=== PATIENT | male | born 1975 | race Two or more races ===

== ENCOUNTER 2016-08-06 05:02 | Inpatient (IN) | payer OTHER ==
--- NOTE | 2016-07-26 12:20 | GHP ---
[f rep st] PREOP HISTORY AND PHYSICAL DATE OF ADMISSION: 08/06/2016 PROBLEM: Bilateral hip arthritis. HISTORY OF PRESENT ILLNESS: The patient is a 41-year-old man admitted for a left hip [place] Hip Resurfacing Arthroplasty. I have followed him for the past 5 years. He has had progressive pain and stiffness. His activities are now very limited. He is admitted for a left hip BHR. PAST MEDICAL HISTORY: Overall, he is in excellent general health. No history of previous serious MR SA hicks infections. He was hospitalized on July 14 for a bowel obstruction. This was treated no noperatively and resolved. He had some type of intestinal deformity at which required surgery. No history of heart disease, DVT, hepatitis, or sleep apnea. CURRENT MEDICATIONS: None. ALLERGIES: Drug allergies: None. Metal allergy: None. Latex allergy: None. SOCIAL HISTORY: The patient is . He works in heating and air conditioning. He does not smok e cigarettes and occasionally drinks alcohol. FAMILY HISTORY: Heart disease. PHYSICAL EXAMINATION: GENERAL: He is a healthy-appearing man. VITAL SIGNS: Height 5 feet 7 inches . Weight 160 pounds. BMI 25.1. HEENT: Eyes: Conjunctivae and sclerae are clear. Pupils are roun d and reactive. Mouth: Good oral hygiene. No loose teeth. CHEST: Clear. HEART: Regular rhythm. No murmurs. EXTREMITIES: Pertinent findings are limited to his hips. He has full hip extension a nd 90 degrees of flexion. As he flexes the left hip, he develops a 10-degree external rotation contr acture and has no further internal or external rotation. Abduction 10 degrees. IMAGING: Films show very severe degenerative arthritis of both hips. The left hip is worse than the right. He has extensive osteophyte formation. He has a deep, medial wall acetabular osteophyte. G ood quality bone. IMPRESSION ON ADMISSION: 1. Bilateral hip severe degenerative arthritis. The left hip is worse than the right. 2. History of intestinal problems. He has had 2 episodes of bowel obstruction. PLAN: He will undergo a left hip [place] Hip Resurfacing Arthroplasty. The surgery has been desc ribed to him including the risks, complications, expectations, and recovery time. I have discussed w ith him the risk of dislocation, femoral neck fracture, infection, and sciatic nerve injury. I have also described to him the issue of metal ions in the blood and in the soft tissues around the hip nicholas quiñones. He understands that he is very young for any type of hip arthroplasty and will probably require revision surgery some time in his lifetime. All his questions have been answered, and he consents to surgery. Please note that he does not have a primary care doctor. /[id number]/MODL
[2016-08-06] MEDS ORDERED: TRANEXAMIC ACID IV ONE (06:00)
[2016-08-06] MEDS ORDERED: DEXAMETHASONE 4 MG/ML VIAL IVP ONE (06:00)
[2016-08-06] MEDS ORDERED: CEFAZOLIN 2 GM/DEXTR 100 ML IV ONE (06:00)
[2016-08-06] MEDS ORDERED: NS IV ONE (06:00)
[2016-08-06] MEDS ORDERED: POVIDONE-IODINE 20 ML in SODIUM CL IRRIG SOLUTION 500 ML IRR ONE (06:00)
[2016-08-06] MEDS ORDERED: ACETAMINOPHEN 325 MG TAB PO ONE (06:00)
[2016-08-06] MEDS ORDERED: CHLORHEXIDINE GLUC HIBICLENS 118 ML BTL TP ONE (06:00)
[2016-08-06] MEDS ORDERED: ROPI/epiNEPH/KETOROLAC JOINT COCKTAIL IU ONE (06:00)
[2016-08-06] MEDS ORDERED: FAMOTIDINE 20 MG TAB PO ONE (06:00)
[2016-08-06] MEDS ORDERED: LIDOCAINE 1% 5 ML SDV ONE (06:16)
[2016-08-06] MEDS ORDERED: SKIN ADHESIVE (DERMABOND) 1 EACH TP ONE (06:46)
[2016-08-06] MEDS ORDERED: ceFAZolin 1 GM/5 ML SYR ONE (06:46)
[2016-08-06] MEDS ORDERED: MIDAZOLAM 2 MG/2 ML VIAL ONE (06:55)
[2016-08-06] MEDS ORDERED: fentaNYL 100 MCG/2 ML INJ ONE (06:57)
[2016-08-06] MEDS ORDERED: PROPOFOL/EMULSION 500 MG/50 ML BOTTLE IV ONE ×2 (06:57→08:34)
[2016-08-06] MEDS ORDERED: LIDOCAINE 2% 5 ML SDV ONE (07:01)
[2016-08-06] MEDS ORDERED: LR 1,000 ML IV ONE (07:11)
[2016-08-06] MEDS ORDERED: LIDOCAINE 1% 5 ML SDV ID PRN (07:11)
[2016-08-06] MEDS ORDERED: PHENYLEPHRINE HCL 100 MCG/ML SYR ONE (07:25)
--- NOTE | 2016-08-06 08:56 | POSTOPPROG ---
Post Op Note Date of Operation: 08/06/16 Surgeon: Cameron Chaudhry Adhesive Bonding Machine Operator: Argelia Anesthesiologist: Prsoper Anesthesia: IV Sedation, Spinal Post-op Diagnosis: left hip arthritis Procedure: left GEOVANNY Inf/Abcess present in the surg proc area at time of surgery?: No EBL: 100-500
[2016-08-06] MEDS ORDERED: BISACODYL 10 MG SUPP PR PRN (09:11)
[2016-08-06] MEDS ORDERED: DIPHENOXYLATE/ATROPINE LOMOTIL 1 TAB PO PRN (09:11)
[2016-08-06] MEDS ORDERED: NS 500 ML IV PRN (09:11)
[2016-08-06] MEDS ORDERED: LACTULOSE 20 GM/30 ML UDCUP PO PRN (09:11)
[2016-08-06] MEDS ORDERED: METOCLOPRAMIDE 10 MG/2 ML VIAL IVP PRN (09:11)
[2016-08-06] MEDS ORDERED: MAGNESIUM HYDROXIDE 30 ML UDCUP PO PRN (09:11)
[2016-08-06] MEDS ORDERED: POLYETHYLENE GLYCOL 3350 17 GM PKT PO PRN (09:11)
[2016-08-06] MEDS ORDERED: TEMAZEPAM 15 MG CAP PO PRN (09:11)
[2016-08-06] MEDS ORDERED: traMADol 50 MG TAB PO PRN (09:11)
[2016-08-06] MEDS ORDERED: ONDANSETRON DISINTEGRATING 4 MG TAB PO PRN (09:11)
[2016-08-06] MEDS ORDERED: PROMETHAZINE HCL 25 MG/ML INJ IVP PRN (09:11)
[2016-08-06] MEDS ORDERED: PROMETHAZINE HCL 25 MG SUPPR PR PRN (09:11)
[2016-08-06] MEDS ORDERED: diphenhydrAMINE 25 MG CAP PO PRN (09:11)
[2016-08-06] MEDS ORDERED: ONDANSETRON 4 MG/2 ML VIAL IVP PRN (09:11)
[2016-08-06] MEDS ORDERED: PHARMACY PAIN CONSULT 1 EA MISC PRN (09:11)
--- NOTE | 2016-08-06 09:44 | DX ---
AP pelvis Clinical Indications: Post left hip replacement Findings: A left hip terminating hand femoral head covering device is present and is in excellent gerber tomic alignment. There is severe osteoarthritic change of the right hip joint. The pelvic ring is int act. Impression: Excellent postoperative alignment of the left hip.
--- NOTE | 2016-08-06 10:00 | GOP ---
[f rep st] OPERATIVE REPORT DATE OF OPERATION: 08/06/2016 SURGEON: Cameron Chaudhry MD SPINNER CONCRETE PIPE: 1. Chevy Moore SMALL BUSINESS BANKING OFFICER. 2. Eze Cheatham, PAC. ANESTHESIA: Combination of Marcaine spinal and IV sedation. ANESTHESIOLOGIST: Vance Cheng DO. PREOPERATIVE DIAGNOSIS: Left hip severe degenerative arthritis. POSTOPERATIVE DIAGNOSIS: Left hip severe degenerative arthritis. PROCEDURE PERFORMED: Left hip Santiago hip resurfacing arthroplasty. FINDINGS: ESTIMATED BLOOD LOSS: The estimated blood loss was about 400 mL. I used a [place] [employer] Santiago hip resurfacing system. The acetabular component was 54 mm in d iameter and press-fit. The femoral head was 48 mm and cemented. He was awakened from anesthesia and rolled to the supine position on his [facility]. A long leg compressive stocking and SCD were applied to the operative leg. The patient wore a stocking and SCD on the opposite leg during the procedure. An abduction pillow was placed between his knees. He was taken to PACU in satisfactory condition. There were no recognized intraoperative complications. The sponge and needle count were correct on 2 occasions. Chevy Moore and Alex Cheatham acted as surgical assistants. Their assistance was a medical necess ity. DESCRIPTION OF PROCEDURE: The patient was given 2 g of preoperative IV Ancef within 60 minutes of rizvi rgery. He also received IV tranexamic acid at a dose of 20 mg/kg. He was placed on the operating ro om table and given spinal anesthesia with Marcaine by Dr. Cheng. He was then placed supine and given IV sedation. A Hummel catheter was not used. The patient wore a compressive stocking and SCD on the nonoperative leg. He was rolled to the right lateral decubitus position. An axillary roll wa s used, and all pressure points were carefully padded. The position was secured with the pegboard ta ble attachment. I was careful to lock his pelvis in a vertical position. His perineum was isolated with plastic adhesive drapes. His left hip and left lower extremity were prepped with ChloraPrep. T hey were draped free using sterile sheets, stockinette, and Ioban plastic drape. The [employer] time-out was performed to verify the correct patient identity and the c orrect surgical side. The [place] time-out was also performed. I made a 6-7 inch straight oblique posterolateral hip skin incision. The subcutaneous tissues were s harply divided and hemostasis was obtained using electrocautery. His fascia santos was identified and split along the axis of its fibers. I then curved posteriorly and proximally, and split the fascia o f the gluteus yamilet, and bluntly split the muscle fibers in line with their orientation. His sciat ic nerve was identified and protected throughout the procedure. The Charnley self-retaining retracto r was inserted. The external rotators and the posterior hip capsule were divided as separate layers at the base of the femoral neck, tagged, and reflected posteriorly. The gluteus yamilet tendon was d ivided and tagged in order to improve exposure and release tension on the sciatic nerve. His hip was dislocated posteriorly. I used a sizing gauge to check the diameter of the neck, and concluded that 48 mm was the proper head size. I performed a complete circumferential capsulotomy. I was able to retract his femoral head anteriorly and superiorly and hold it out of place with appropriate retracto rs. The remnant of his labrum was completely excised. He had very large osteophytes around the ketan phery of his acetabulum. These were removed with an osteotome and rongeur. His acetabulum was reame d sequentially up to 54 mm. He had a very deep medial acetabular osteophyte. I reamed to the true f jennifer of the acetabulum. I selected the [place] monoblock porous-coated acetabular component with an outside diameter of 54 mm. This was firmly impacted and was a very tight fit. I was careful to d etermine proper inclination and anteversion. I did some final trimming of the peripheral acetabular osteophytes. I was careful to leave a good lip of bone extending beyond the anteroinferior lip of th e metal cup. I then returned to preparation of the femoral head. Using appropriate jigs and guides, I inserted a guide pin into the femoral head and neck. I was careful to position it in such a way there would be no notching of the neck. The large sterile metal goniometer was used to check the neck shaft angle. I reamed over the guide pin, and inserted a reaming guide. I then used the cylindrical reamer down to the head and neck junction. This was followed by the flat reamer and the chamfer reamer. The hea d was sized for 48 mm. There was no impingement or damage to the neck. Some small anterior neck ost eophytes were removed with a rongeur. I was careful to center on the femoral neck, thereby re-establ ishing the correct anterior head neck offset. I drilled a small hole in the lesser trochanter, and i nserted a suction cannula to create a negative pressure medullary canal. Small holes were drilled on the flattened chamfer surfaces of the prepared head for cement anchors. The head was thoroughly campos aned with the pulsating lavage and carefully dried. I used the CarboJet device to blow dry the cance llous surfaces. A single batch of Simplex cement with tobramycin was mixed. At about 50 seconds, I poured the liquid cement into the head component, inserted it onto the femoral head and impacted it i n place. Excess cement was removed before it hardened. The acetabulum was irrigated, cleaned, inspe cted, and the hip was reduced. Stability and range of motion were checked. I placed my finger along the anterior aspect of the acetabular component and flexed the hip to 110 degrees. There was no ant erior impingement. The suction cannula in the lesser trochanter was removed. The wound was thorough ly irrigated with a dilute Betadine solution. 40 mL of the joint anesthetic cocktail were injected i nto the capsule, the deep musculature and the subcutaneous tissues along the skin edges. His sciatic nerve was reinspected and looked unharmed. The external rotators and the posterior hip c apsule were repaired in separate layers with #2 FiberWire sutures through drill holes in the greater trochanter. This provided a strong posterior capsular and external rotator repair. The gluteus maxi mus tendon was repaired with 2 interrupted lfrlge-az-vnele #2 FiberWire sutures. The fascia santos was closed first with 2 interrupted hsyquh-ah-yyrvs #2 FiberWire sutures, followed by a running #2 barbe d Ethicon fat affix PDO suture. The subcutaneous tissues were closed with a running 0 barbed Ethicon Stratafix Monoderm suture. The skin was closed with a running 3-0 barbed Ethicon Stratafix Monoderm subcuticular suture. The skin edges were reapproximated and sealed with Dermabond glue. The wound was covered with a strip of Telfa, and everything was held in place with a piece of clear plastic Teg jesús. /[id number]/MODL
[2016-08-06] MEDS: LR 1,000 ML IV SCH ×2 (11:15→19:59)
[2016-08-06] MEDS: TRANEXAMIC ACID 650 MG TAB PO SCH ×3 (11:44→21:20)
[2016-08-06] MEDS: ACETAMINOPHEN 325 MG TAB PO SCH ×3 (11:45→23:23)
[2016-08-06] MEDS: oxyCODONE IR 5 MG TAB PO PRN ×4 (13:46→23:23)
[2016-08-06] MEDS: ceFAZolin 2 GM/DEXTROSE 100 ML IV SCH ×2 (15:44→21:20)
[2016-08-06] MEDS: KETOROLAC 30 MG/1 ML SDV IVP PRN (15:46)
[2016-08-06 15:56] VITALS: RESP 16
[2016-08-06] MEDS: ASPIRIN 325 MG TAB PO SCH (19:18)
[2016-08-06] MEDS: FAMOTIDINE 20 MG TAB PO SCH (19:19)
[2016-08-06] MEDS: SENNOSIDES/DOCUSATE SODIUM TAB PO SCH (19:19)
[2016-08-06] MEDS: CYCLOBENZAPRINE 10 MG TAB PO PRN (21:20)
[2016-08-07 04:22] VITALS: PULSE 81
[2016-08-07] MEDS: oxyCODONE IR 5 MG TAB PO PRN ×3 (04:23→10:36)
[2016-08-07] MEDS: ACETAMINOPHEN 325 MG TAB PO SCH (05:07)
[2016-08-07 05:19] LABS: HEMATOCRIT 28.9 % (40.0-51.0); HEMOGLOBIN 9.4 g/dL (13.7-17.5)
[2016-08-07 07:28] VITALS: BP 110/68; TEMP 98.5; O2SAT 95
[2016-08-07] MEDS: SENNOSIDES/DOCUSATE SODIUM TAB PO SCH (07:35)
[2016-08-07] MEDS: ASPIRIN 325 MG TAB PO SCH (07:35)
[2016-08-07] MEDS: CYCLOBENZAPRINE 10 MG TAB PO PRN (07:37)
[2016-08-07] MEDS: TRANEXAMIC ACID 650 MG TAB PO SCH (07:37)
[2016-08-07] MEDS: FAMOTIDINE 20 MG TAB PO SCH (07:38)
[2016-08-07] MEDS: KETOROLAC 30 MG/1 ML SDV IVP PRN (07:38)
--- NOTE | 2016-08-07 08:34 | SOAPPROG ---
SOAP Progress Note Assessment/Plan: Assessment: POD #1, s/p L BHR Awake, alert,afebrile. VSS. H/H ok. Mild lightheadedness yesterday. None today. Post op films look good. Normal sciatic nerve function. Dressing clean and dry. No swelling of thigh. Plan: PT/OT today Discharge to home later today. 08/07/16 08:33 Objective: Vital Signs Temp Pulse Resp BP Pulse Ox 36.9 C 81 16 110/68 95 08/07/16 07:27 08/07/16 07:27 08/07/16 07:27 08/07/16 07:27 08/07/16 07:27 Laboratory Results 08/07/16 04:52 08/06/16 08/07/16 08/08/16 05:59 05:59 05:59 Intake Total 4200 Output Total 1125 200 Balance 3075 -200 ICD10 Worksheet Patient Problems: Problems Problem Status Diagnosed Osteoarthritis of left hip Acute
[2016-08-07] MEDS ORDERED: FERROUS SULFATE 140 MG TAB.ER PO SCH (09:00)
--- NOTE | 2016-08-07 12:05 | GDS ---
[f rep st] DISCHARGE SUMMARY ADMISSION DIAGNOSIS: Severe left hip degenerative arthritis. DISCHARGE DIAGNOSIS: Severe left hip degenerative arthritis. OPERATION PERFORMED: A left hip resurfacing arthroplasty with metal on metal bearing surfaces. POSTOPERATIVE COMPLICATIONS: None. CONDITION ON DISCHARGE: Improved. HOSPITAL COURSE: The patient was admitted to the hospital on the day of surgery. His admission whit e blood cell count was 6.57, and hemoglobin and hematocrit were 14.0 and 43.3. On the same day, the patient underwent a left hip resurfacing arthroplasty using Marcaine spinal and IV sedation. On the 1st postoperative day, the patient's hemoglobin and hematocrit were 9.4 and 28.9. He did not require any transfused blood. He was seen by Physical therapy and made good progress with hip range of motion exercises and ambulation. He was treated with multimodal DVT prophylaxis including full-st rength aspirin, TIM stockings, and SCDs. By the time of discharge, the patient was independent with his crutches and walker, voiding, and afeb rile. His dressing was clean and dry. DISPOSITION: The patient is discharged to his home. He will go directly to outpatient registered physical therapist apy. TIM stockings for 1 week. Abduction pillow in bed for 3 weeks. Weightbearing as tolerated. H e has prescriptions at home for oxycodone and tramadol. He has a followup appointment in 3 weeks. I f he has any problems before then, he will call the office. Please note, the patient does not list a PCP. Copy requested to: primary care physician /[id number]/MODL
== END 2016-08-07 12:25 | disposition home or self-care (01) | DRG 470 ==
LOC: F3N 05:02
PROVIDERS: ADMIT Orthopaedic Surgery; ATTEND Orthopaedic Surgery
PROC: 0SRB0J9 Replacement of Left Hip Joint with Synthetic Substitute, Cemented, Open Approach (ICD-10-PCS; principal; 2016-08-06 07:15)
DX: M16.12 Unilateral primary osteoarthritis, left hip (principal)
CPT/HCPCS: 97116-GP; 97161-GP; 97165-GO; 97530-GP; C1713; C1769; J0171; J0690; J1100; J1885; J2250; J2370; J2704; J2795; J3010